=== PATIENT | female | born 1945 ===

== ENCOUNTER 2023-01-19 01:04 | Emergency (ER) | payer OTHER ==
[~2023-01-19] VITALS: Ht 149.9 cm; Wt 61.2 kg
[~2023-01-19 01:04] MED LIST: BENICAR HCT 41 UDTAB
[2023-01-19] MEDS ORDERED: BENICAR HCT 401 EAC1 (01:19)
[2023-01-19] MEDS ORDERED: PAXIL20 MG (01:19)
[2023-01-19] MEDS ORDERED: PENTOXIFYLLINE400 MG (01:20)
[2023-01-19] MEDS ORDERED: HORIZANT300 MG (01:20)
[2023-01-19] MEDS ORDERED: DICY20TA (01:20)
== END 2023-01-19 02:24 | disposition home or self-care (01) ==
LOC: ER
DX: R00.2 Palpitations (principal)